=== PATIENT | female | born 1985 ===

== ENCOUNTER 2019-05-07 23:42 | Emergency (ER) | payer BC ==
[2019-05-07] MEDS ORDERED: Acetaminophen 500 MG TAB ONE (23:56)
== END 2019-05-08 00:20 | disposition home or self-care (01) ==
LOC: SCSER 23:42
DX: S01.112A Laceration without foreign body of left eyelid and periocular area, initial encounter (principal); F41.9 Anxiety disorder, unspecified; W01.0XXA Fall on same level from slipping, tripping and stumbling without subsequent striking against object, initial encounter
CPT/HCPCS: 12011